=== PATIENT | female | born 1945 | race Caucasian/White ===

== ENCOUNTER 2020-06-29 13:23 | Outpatient (CLI) | payer MEDICARE, SELFPAY ==
--- NOTE | ~2020-06-29 | DEXA_ITS ---
BMD(1) Young-Adult(2) Age-Matched(3) Region (g/cm2) T-score Z-score WHO Classification L1 1.020 -1.0 1.3 Normal L2 1.088 -1.0 1.2 Normal L3 1.225 0.1 2.3 Normal L4 1.074 -1.1 1.1 Osteopenia L1-L4 1.103 -0.7 1.5 Normal Trend: L1-L4 Change vs Change vs Measured Age BMD(1) Baseline Previous Date ([age]) (g/cm2) (%) (%) 06[birth year]29/2020 [age] 1[age]103 baseline - 1 - Statistically 68% of repeat scans fall within 1SD (+- 0.010 g/cm2 for AP Spine L1-L4) 2 - [place] (Combined NHANES (ages 20-30) / [employer] (ages 20-40)) AP Spine Reference Population (v112) 3 - Matched for Age, Weight (females 25-100 kg), Ethnic 11 - World Health Organization - Definition of Osteoporosis and Osteopenia for Women: Normal = T-score at or above -1.0 SD; Osteopenia = T-score between -1.0 and -2.5 SD; Osteoporosis = T-score at or below -2.5 SD; (WHO definitions only apply when a young healthy Women reference database is used to determine T-scores.) Printed: 06/29/2020 2:44:20 PM (13.60)76:3.00:50.00:12.0 0.00:11.58 0.60x1.05 20.2:%Fat=32.6% 0.00:0.00 0.00:0.00 Filename: [id number] Scan Mode: Standard;OneScan 37.0 [employer] [id number] BMD(1) Young-Adult(2,7) Age-Matched(3) Region (g/cm2) T-score Z-score WHO Classification Neck Left 0.900 -1.0 1.2 Normal Right 0.829 -1.5 0.7 Osteopenia Mean 0.864 -1.2 1.0 Osteopenia Difference 0.072 0.5 0.5 - Total Left 0.936 -0.6 1.5 Normal Right 0.829 -1.4 0.7 Osteopenia Mean 0.883 -1.0 1.1 Normal Difference 0.107 0.8 0.8 - Hip [place] Length Comparison (mm) (Right = 96.5 mm) (Mean = 102.7 mm) (Left = 101.4 mm) Trend: Total Mean Change vs Change vs Measured Age BMD(1) Baseline Previous Date (years) (g/cm2) (%) (%) 06/29/2020 74.8 0[age]883 baseline - 1 - Statistically 68% of repeat scans fall within 1SD (+- 0.010 g/cm2 for DualFemur Total) 2 - [place] (Combined NHANES (ages 20-30) / [employer] (ages 20-40)) Femur Reference Population (v112) 3 - Matched for Age, Weight (females 25-100 kg), Ethnic 7 - DualFemur Total T-score difference is 0.8. Asymmetry is Mild. 11 - World Health Organization - Definition of Osteoporosis and Osteopenia for Women: Normal = T-score at or above -1.0 SD; Osteopenia = T-score between -1.0 and -2.5 SD; Osteoporosis = T-score at or below -2.5 SD; (WHO definitions only apply when a young healthy Women reference database is used to determine T-scores.) Printed: 06/29/2020 2:44:20 PM (13.60); Filename: [id number]; Right Femur; 16.9:%Fat=25.6%; Neck Angle (deg)= 58; Scan Mode: Standard 37.0 uGy; Left Femur; 15.5:%Fat=39.4%; Neck Angle (deg)= 63; Scan Mode: Standard 37.0 uGy [employer] [id number] Dear Marissa Egan, Your patient Summer Edmonds completed a BMD test on 06/29/2020 using the [employer] DXA System (analysis version: 13.60) manufactured by [employer]. The following summarizes the results of our evaluation. PATIENT BIOGRAPHICAL: Name: Summer Edmonds
== END 2020-06-29 13:24 | disposition home or self-care (01) ==
LOC: CHSIMG 13:30
PROVIDERS: PCP Family Medicine; Visit Provider Nurse Practitioner
DX: M81.0 Age-related osteoporosis without current pathological fracture (principal)
CPT/HCPCS: 77080